=== PATIENT | female | born 1970 | race Caucasian/White ===

== ENCOUNTER → 2019-05-03 | Outpatient (CLI) | payer BC ==
--- NOTE | 2019-05-04 10:46 | MM ---
Reason for exam: screening (asymptomatic). Last mammogram was performed 5 years and 11 months ago. History: Patient had first child at age 35. Took hormonal contraceptives for 14 years beginning at age 20. Physical Findings: A clinical breast exam by your physician is recommended on an annual basis and results should be correlated with mammographic findings. MG Screening Mammo w CAD Bilateral CC and MLO view(s) were taken. Prior study comparison: October 23, 2015, mammogram. June 07, 2013, bilateral digital screening mammo w/CAD. December 11, 2010, bilateral digital screening mammo w/CAD. The breast tissue is heterogeneously dense. This may lower the sensitivity of mammography. No suspicious abnormality. No significant changes when compared with prior studies. ASSESSMENT: Negative, BI-RAD 1 RECOMMENDATION: Routine screening mammogram of both breasts in 1 year.
== END | disposition home or self-care (01) ==
LOC: RADMAMWWP 12:38
PROVIDERS: ATTEND Obstetrics & Gynecology
DX: Z12.31 Encounter for screening mammogram for malignant neoplasm of breast (principal)
CPT/HCPCS: 77067

== ENCOUNTER → 2021-01-28 | Outpatient (CLI) | payer BC ==
--- NOTE | 2021-01-30 13:34 | MM ---
Reason for exam: screening (asymptomatic). Last mammogram was performed 1 year and 9 months ago. History: Patient had first child at age 35. Took hormonal contraceptives for 14 years beginning at age 20. Physical Findings: A clinical breast exam by your physician is recommended on an annual basis and results should be correlated with mammographic findings. MG 3D Screening Mammo W/Cad Bilateral CC and MLO view(s) were taken. Prior study comparison: October 23, 2015, mammogram. The breast tissue is heterogeneously dense. This may lower the sensitivity of mammography. There is chronic nodularity in the left posterior upper outer quadrant compatible with a lymph node. No significant changes when compared with prior studies. ASSESSMENT: Negative, BI-RAD 1 RECOMMENDATION: Routine screening mammogram of both breasts in 1 year.
== END | disposition home or self-care (01) ==
LOC: RADMAMWWP 11:59
PROVIDERS: ATTEND Obstetrics & Gynecology
DX: Z12.31 Encounter for screening mammogram for malignant neoplasm of breast (principal)
CPT/HCPCS: 77063; 77067

== ENCOUNTER → 2021-02-25 | Outpatient (CLI) | payer BC ==
[2021-02-25 09:03] LABS: Basophils % (A) 1 %; Eosinophils # (A) 0.1 k/uL (0-0.7); Eosinophils % (A) 1 %; HCT 34.8 % (34.0-46.0); HGB 10.8 gm/dL (11.4-16.0); Hypochromasia Moderate; Lymphocytes # (A) 1.3 k/uL (1.0-4.8); Lymphocytes % (A) 31 %; MCH 22.6 pg (25.0-35.0); MCHC 31.1 g/dL (31.0-37.0); MCV 72.7 fL (80.0-100.0); Mean Platelet Volume 6.9; Microcytosis Slight; Monocytes # (A) 0.2 k/uL (0-1.0); Monocytes % (A) 5 %; Neutrophils # (A) 2.6 k/uL (1.3-7.7); Neutrophils % (A) 61 %; Platelet Count 339 k/uL (150-450); RBC 4.79 m/uL (3.80-5.40); RDW 15.2 % (11.5-15.5); WBC 4.2 k/uL (3.8-10.6)
[2021-02-25 09:21] LABS: African American GFR (CKD) >90 (>60 ml/min/1.73 sqM); Anion Gap 5 mmol/L; Blood Urea Nitrogen 16 mg/dL (7-17); Calcium 8.7 mg/dL (8.4-10.2); Carbon Dioxide 25 mmol/L (22-30); Chloride 104 mmol/L (98-107); Glucose 322 mg/dL (74-99); Non-African American GFR(CKD) >90 (>60 ml/min/1.73 sqM); Potassium 4.3 mmol/L (3.5-5.1); Sodium 134 mmol/L (137-145)
== END | disposition home or self-care (01) ==
LOC: LABPAT 08:48
PROVIDERS: ATTEND Obstetrics & Gynecology
DX: Z01.812 Encounter for preprocedural laboratory examination (principal)
CPT/HCPCS: 36415; 80048; 85025

== ENCOUNTER 2021-03-04 05:55 | Inpatient (IN) | payer BC ==
[~2021-03-04 05:55] MED LIST: DEXAMETHASONE SOD PHOSPHATE 4 MG/ML 1 ML VIAL IV ONE; ONDANSETRON 4 MG/2 ML VIAL IVP ONE
[2021-03-04] MEDS: LACTATED RINGERS 1,000 ML IV SCH ×2 (06:17→06:39)
[2021-03-04 06:35] LABS: Glucose,Whole Blood 247 mg/dL (75-99)
[2021-03-04] MEDS ORDERED: LIDOCAINE 1% (10MG/ML) FOR IV START INTRADERMA ONE (06:39)
[2021-03-04] MEDS ORDERED: INSULIN ASPART (NovoLOG) 100 UNIT/ML VIAL SQ ONE ×2 (06:55→09:17)
[2021-03-04] MEDS ORDERED: MIDAZOLAM 2 MG/2 ML VIAL IVP ONE (07:00)
--- NOTE | 2021-03-04 07:13 | P.HPOB ---
History of Present Illness H&P Date: 03/04/21 Chief Complaint: fibroid uterus 50 year old presents for LASHELL BSO due to fibroid uterus and menorrhagia. Review of Systems All systems: negative Constitutional: Denies chills, Denies fever Eyes: denies blurred vision, denies pain Ears, nose, mouth and throat: Denies headache, Denies sore throat Cardiovascular: Denies chest pain, Denies shortness of breath Respiratory: Denies cough Gastrointestinal: Denies abdominal pain, Denies diarrhea, Denies nausea, Denies vomiting Genitourinary: Denies dysuria, Denies hematuria Musculoskeletal: Denies myalgias Integumentary: Denies pruritus, Denies rash Neurological: Denies numbness, Denies weakness Psychiatric: Denies anxiety, Denies depression Endocrine: Denies fatigue, Denies weight change Past Medical History Past Medical History: Asthma, Diabetes Mellitus, Eye Disorder, GERD/Reflux, Hyperlipidemia, Hypertension, Osteoarthritis (OA) Additional Past Medical History / Comment(s): "No current medications for anything". HX 3 BULGING DISCS. Varicose veins. History of Any Multi-Drug Resistant Organisms: None Reported Past Surgical History: Section, Orthopedic Surgery, Tonsillectomy, Tubal Ligation Additional Past Surgical History / Comment(s): BILATERAL SHOULDER SURGERY, LEFT SHOULDER MANIPULATION, cysts removed. Past Anesthesia/Blood Transfusion Reactions: Family History of Problems w/ Anesthesia, Motion Sickness, Postoperative Nausea & Vomiting (PONV) Additional Past Anesthesia/Blood Transfusion Reaction / Comment(s): Mom slow to wake up. Past Psychological History: No Psychological Hx Reported Smoking Status: Never smoker Past Alcohol Use History: None Reported Past Drug Use History: None Reported - Past Family History Mother Family Medical History: Cancer, Hyperlipidemia Additional Family Medical History / Comment(s): FROM PANCREATIC CANCER. Father Family Medical History: Hyperlipidemia Medications and Allergies Home Medications Medication Instructions Recorded Confirmed Type No Known Home Medications 02/28/21 03/04/21 History Allergies Allergy/AdvReac Type Severity Reaction Status Date / Time No Known Allergies Allergy Verified 03/04/21 06:20 Exam Osteopathic Statement: *. No significant issues noted on an osteopathic structural exam other than those noted in the History and Physical/Consult. Vital Signs Temp Pulse Resp BP Pulse Ox 03/04/21 06:38 98.3 F 91 16 143/81 97 Intake and Output 07/11/21 07/12/21 07/12/21 22:59 06:59 14:59 Other: Weight 92.1 kg Heart: Regular rate and rhythm Lungs: Clear to auscultation bilaterally Abdomen: Soft, nontender Extremities: Negative Homans sign Results Abnormal Lab Results - Last 24 Hours (Table) 03/04/21 Range/Units 06:32 POC Glucose (mg/dL) 247 H (75-99) mg/dL Assessment and Plan (1) Fibroid uterus Current Visit: Yes Status: Acute Code(s): D25.9 - LEIOMYOMA OF UTERUS, UNSPECIFIED SNOMED Code(s): 26130061 (2) Menorrhagia Current Visit: Yes Status: Acute Code(s): N92.0 - EXCESSIVE AND FREQUENT MENSTRUATION WITH REGULAR CYCLE SNOMED Code(s): 809914744 Plan: LASHELL DEUTSCH
[2021-03-04] MEDS ORDERED: diphenhydrAMINE 50 MG/ML 1 ML VIAL ONE (07:26)
[2021-03-04] MEDS ORDERED: HYDROmorphone (PF) 1 MG/ML ONE (07:26)
[2021-03-04] MEDS ORDERED: fentaNYL (PF) 50 MCG/ML 2 ML AMP ONE (07:26)
[2021-03-04] MEDS ORDERED: MIDAZOLAM 2 MG/2 ML VIAL ONE (07:26)
[2021-03-04] MEDS ORDERED: NEOSTIGMINE 1 MG/ML 10 ML VIAL ONE (07:26)
[2021-03-04] MEDS ORDERED: LIDOCAINE 1% INJ 10MG/ML (20 ML MDV) ONE (07:26)
[2021-03-04] MEDS ORDERED: PROPOFOL 10 MG/ML 20 ML VIAL IV ONE (07:26)
[2021-03-04] MEDS ORDERED: SUCCINYLCHOLINE CHLORIDE 100 MG/5 ML SYR IV ONE (07:26)
[2021-03-04] MEDS ORDERED: GLYCOPYRROLATE 0.2 MG/ML 2 ML VIAL ONE (07:26)
[2021-03-04] MEDS ORDERED: KETOROLAC 15 MG/ML 1 ML VIAL ONE (07:26)
[2021-03-04] MEDS ORDERED: MORPHINE SULFATE (PF) 0.3 MG/0.3 ML SYR ONE (07:26)
[2021-03-04] MEDS ORDERED: ROCURONIUM 10 MG/ML (5 ML VIAL) IV ONE (07:26)
[2021-03-04] MEDS ORDERED: LACTATED RINGERS 1,000 ML IV ONE ×2 (08:21)
[2021-03-04] MEDS ORDERED: diphenhydrAMINE 50 MG/ML 1 ML VIAL IVP PRN (08:51)
[2021-03-04] MEDS ORDERED: METOCLOPRAMIDE 5 MG/ML 2 ML VIAL IVP PRN (08:51)
[2021-03-04] MEDS ORDERED: ONDANSETRON 4 MG/2 ML VIAL IVP PRN (08:51)
[2021-03-04] MEDS ORDERED: ZOLPIDEM 5 MG TAB PO PRN (08:51)
[2021-03-04] MEDS ORDERED: SIMETHICONE 80 MG CHEWABLE PO PRN (08:51)
--- NOTE | 2021-03-04 08:51 | P.OP ---
Date of Procedure: 03/04/21 Preoperative Diagnosis: 1. fibroid uterus 2. menorrhagia Postoperative Diagnosis: 1. fibroid uterus 2. menorrhagia Procedure(s) Performed: LASHELL/BSO Anesthesia: CAHDDA Surgeon: Cecy Raymundo Perinatal Director #1: Niyah Harris Estimated Blood Loss (ml): 150 IV fluids (ml): 900 Urine output (ml): 100 Pathology: other (Uterus, cervix, bilateral tubes and ovaries) Condition: stable Disposition: PACU Operative Findings: Fibroid uterus, normal ovaries, evidence of previous tubal ligation Description of Procedure: Patient taken the operating room where general anesthesia was obtained without difficulty. She is prepped and draped in normal sterile fashion dorsal supine position and Cabrales catheter placed. Pfannenstiel skin incision was made the scalpel carried through to the underlying layer fascia with the scalpel. Fascia was incised in midline and carried bilaterally with Perkins scissors. Superior aspect of fascial incision was grasped with Courtland clamps elevated and the underlying rectus muscles dissected off with the Mayos. Attention was then turned to the inferior aspect of the same incision which in a similar fashion was grasped tented up and the underlying muscles were dissected off with the Perkins's. The muscles were in the midline and the peritoneum was identified tented up and entered sharply with the scalpel. Incision was extended superiorly and inferiorly with good visualization of bladder. The self-retaining retractor was then placed and the bowels packed away with moist laparotomy sponges. The corneal of the uterus was grasped with Anne Marie clamps. The left side fallopian tube was raised and the Bonny clamp was clamped underneath the ovary at the IP ligament. This clamped cut and suture ligated. The left infundibulopelvic ligament was clamped cut and suture ligated. The bladder flap was then taken down with Metzenbaums and peeled off the underlying cervix. The uterine artery was skeletonized and clamped cut and suture ligated on both sides. The cardinal ligaments were clamped cut and suture ligated as well as the uterosacral ligaments. We clamped across the vagina and cut and suture ligated. The uterus and cervix were amputated off the vagina. The vaginal cuff was reinforced then closed with 0 Vicryl in a running locked fashion. Hemostasis was assured and the pelvis was copiously irrigated. All instruments removed from the abdomen and pelvis. The peritoneum was reapproximated with 0 Vicryl in a running fashion. The fascia was reapproximated with 0 Vicryl in a running fashion. The subcu tissue was closed with 3-0 Vicryl in running fashion. The skin was closed wesley. Patient tolerated the procedure well, sponge and instrument counts correct 2 and she was taken to recovery room in stable condition condition
[2021-03-04] MEDS: SENNOSIDES-DOCUSATE SODIUM 1 EACH TAB PO SCH ×2 (09:00→21:09)
[2021-03-04 09:08] LABS: Glucose,Whole Blood 272 mg/dL (75-99)
[2021-03-04] MEDS: HYDROmorphone 0.5 MG/0.5 ML SYRINGE IVP PRN ×2 (09:14→09:30)
--- NOTE | 2021-03-04 10:33 | P.ANPRN ---
Procedure Note - Anesthesia - Epidural/Spinal Spinal Time Out Performed: Yes Date of Procedure: 03/04/21 Procedure Start Time: 06:59 Procedure Stop Time: 07:06 Location of Patient: PreOp Sedation Type: Sedate with meaningful contact maintained Preparation: Sterile Prep Position: Sitting Catheter: None Needle Guage: Other (see comment) (25G [place] Needle) Injectate: Other (300mcg of astramorph) Narrative: L3 L4 space and local anesthetic 1% lidocaine infiltrated Blood Aspirated: No Pain Paresthesia on Injection Noted: No Events: Uneventful and Well Tolerated
[2021-03-04] MEDS ORDERED: NALOXONE 0.4 MG/ML 1 ML VIAL IV PRN (11:31)
[2021-03-04] MEDS ORDERED: MORPHINE SULFATE 2 MG/ML SYRINGE IVP PRN (11:31)
[2021-03-04 12:36] LABS: Glucose,Whole Blood 272 mg/dL (75-99)
[2021-03-04] MEDS: INSULIN ASPART (NovoLOG) 100 UNIT/ML VIAL SQ SCH ×3 (12:44→21:10)
[2021-03-04] MEDS: KETOROLAC 15 MG/ML 1 ML VIAL IVP PRN ×2 (14:32→21:10)
[2021-03-04 17:59] LABS: Glucose,Whole Blood 191 mg/dL (75-99)
[2021-03-04 21:05] LABS: Glucose,Whole Blood 178 mg/dL (75-99)
[2021-03-05] MEDS: KETOROLAC 15 MG/ML 1 ML VIAL IVP PRN (02:56)
[2021-03-05 06:29] LABS: Basophils % (A) 0 %; Eosinophils # (A) 0.1 k/uL (0-0.7); Eosinophils % (A) 1 %; HCT 27.2 % (34.0-46.0); Hypochromasia Slight; Lymphocytes # (A) 1.7 k/uL (1.0-4.8); Lymphocytes % (A) 27 %; MCH 24.2 pg (25.0-35.0); MCV 71.3 fL (80.0-100.0); Mean Platelet Volume 6.9; Microcytosis Moderate; Monocytes # (A) 0.3 k/uL (0-1.0); Monocytes % (A) 5 %; Neutrophils # (A) 4.2 k/uL (1.3-7.7); Neutrophils % (A) 66 %; Platelet Count 254 k/uL (150-450); RBC 3.82 m/uL (3.80-5.40); RDW 15.5 % (11.5-15.5); WBC 6.5 k/uL (3.8-10.6)
[2021-03-05 06:30] LABS: Glucose,Whole Blood 175 mg/dL (75-99)
[2021-03-05] MEDS: INSULIN ASPART (NovoLOG) 100 UNIT/ML VIAL SQ SCH ×4 (06:33→21:05)
--- NOTE | 2021-03-05 06:59 | P.PN ---
Progress Note - Text Progress Note Date: 03/05/21 Postoperative day 1 status post total abdominal hysterectomy, and intrathecal m orphine given for postoperative analgesia, patient doing well, there is no anesthesia related complications, Patient had no headache, vital signs stable , Assessment and plan= postop day 1,, doing well there is no anesthesia related complication.
[2021-03-05 07:07] LABS: HGB 9.2 gm/dL (11.4-16.0)
--- NOTE | 2021-03-05 08:08 | P.PN ---
Progress Note - Text Progress Note Date: 03/05/21 Status post LASHELL/BSO postop day #1 Patient seen and examined at bedside. She is tolerating clears, no flatus yet. Denies nausea, vomiting, chest pain, shortness of breath or any calf pain. Vital signs stable Heart regular rate and rhythm Lungs: Clear station bilaterally Abdomen: Soft, nontender, incision is clean, dry, intact with wesley Extremities: Negative Homans sign. Assessment 1 status post LASHELL/BSO postop day #1 2. Uncontrolled diabetes Plan 1. Continue sliding scale insulin 2. Continue pain meds, changed to oral 3. Increase ambulation
[2021-03-05] MEDS ORDERED: ACETAMINOPHEN TAB 325 MG TAB PO PRN (08:52)
[2021-03-05] MEDS: IBUPROFEN 600 MG TAB PO SCH ×3 (09:36→21:06)
[2021-03-05] MEDS: SENNOSIDES-DOCUSATE SODIUM 1 EACH TAB PO SCH ×2 (09:37→21:06)
[2021-03-05] MEDS: ACETAMINOPHEN TAB 500 MG TAB PO SCH ×3 (12:11→23:47)
[2021-03-05 13:04] LABS: Glucose,Whole Blood 199 mg/dL (75-99)
[2021-03-05 14:08] LABS: Hemoglobin A1C 9.3 % (4.0-6.0)
[2021-03-05 14:33] VITALS: BMI 30.9
[2021-03-05 17:50] LABS: Glucose,Whole Blood 186 mg/dL (75-99)
[2021-03-05 20:14] LABS: Glucose,Whole Blood 185 mg/dL (75-99)
[2021-03-05 20:58] LABS: Glucose,Whole Blood 180 mg/dL (75-99)
[2021-03-06] MEDS: IBUPROFEN 600 MG TAB PO SCH ×3 (02:40→15:06)
[2021-03-06 06:26] LABS: Glucose,Whole Blood 171 mg/dL (75-99)
[2021-03-06] MEDS: ACETAMINOPHEN TAB 500 MG TAB PO SCH (06:29)
[2021-03-06] MEDS: INSULIN ASPART (NovoLOG) 100 UNIT/ML VIAL SQ SCH ×2 (06:30→13:45)
--- NOTE | 2021-03-06 08:43 | P.DS ---
Providers Date of admission: 03/04/21 05:55 Expected date of discharge: 03/06/21 Attending physician: Cecy Raymundo Primary care physician: Robert Davis MD - Discharge Diagnosis(es) (1) Fibroid uterus Current Visit: Yes Status: Ruled-out (2) Menorrhagia Current Visit: Yes Status: Resolved (3) Status post total abdominal hysterectomy and bilateral salpingo-oophorectomy Current Visit: Yes Status: Acute Hospital Course: Patient presented for LASHELL/BSO for fibroid uterus and menorrhagia. She underwent this procedure without complication. Postoperatively her pain was not well controlled with just Tylenol 3 Motrin side changed her to Motrin and [place]. She is tolerating regular diet, voiding without difficulty and did have a bowel movement. She is ambulating without difficulty. She denies nausea, vomiting, chest pain, shortness of breath or any calf pain. Her incision is clean, dry, intact. Patient will be discharged home postoperative day #2 in stable condition to follow-up with me in one week. Plan - Discharge Summary Discharge Rx Participant: Yes New Discharge Prescriptions: New Ibuprofen [Motrin] 600 mg PO Q6H #40 tab HYDROcodone/APAP 7.5-325MG [[place] 7.5-325] 1 each PO Q4-6H PRN #18 tab PRN Reason: Pain Discharge Medication List HYDROcodone/APAP 7.5-325MG [[place] 7.5-325] 1 each PO Q4-6H PRN #18 tab 03/06/21 [Rx] Ibuprofen [Motrin] 600 mg PO Q6H #40 tab 03/06/21 [Rx] Activity/Diet/Wound Care/Special Instructions: Blood Sugar testing supplies and glucometer are ordered through [facility] at [facility]. They can be reached at [phone]. Discharge Disposition: HOME SELF-CARE
[2021-03-06] MEDS: SENNOSIDES-DOCUSATE SODIUM 1 EACH TAB PO SCH (08:53)
[2021-03-06] MEDS: HYDROcodone/APAP 7.5-325MG 1 EACH TAB PO PRN ×2 (08:55→15:06)
[2021-03-06 12:56] LABS: Glucose,Whole Blood 158 mg/dL (75-99)
[2021-03-06 14:54] VITALS: BP 163/83; PULSE 72; RESP 16; TEMP 98.1
== END 2021-03-06 16:39 | disposition home or self-care (01) | DRG 743 ==
LOC: 2ORMAIN 05:55 → EDSTATUS 07:30 → 6PED 09:13
PROVIDERS: ADMIT Obstetrics & Gynecology; ATTEND Obstetrics & Gynecology
PROC: 0UT70ZZ Resection of Bilateral Fallopian Tubes, Open Approach (ICD-10-PCS; 2021-03-04)
PROC: 0UT20ZZ Resection of Bilateral Ovaries, Open Approach (ICD-10-PCS; 2021-03-04)
PROC: 0UT90ZZ Resection of Uterus, Open Approach (ICD-10-PCS; principal; 2021-03-04 07:30)
DX: D25.1 Intramural leiomyoma of uterus (principal); N92.0 Excessive and frequent menstruation with regular cycle; E11.9 Type 2 diabetes mellitus without complications; Z80.0 Family history of malignant neoplasm of digestive organs; Z98.51 Tubal ligation status
CPT/HCPCS: 81025; 83036; 85025; 86850; 86900; 86901; 88307; 94760